=== PATIENT | female | born 1945 | race Caucasian/White ===

== ENCOUNTER 2019-07-19 07:23 | Day surgery (SDC) | payer OTHER ==
[2019-07-18 15:41] VITALS: BMI 31.5
[2019-07-19] MEDS ORDERED: PROPOFOL 20 ML ONE (09:26)
[2019-07-19] MEDS ORDERED: LIDOCAINE HCL/PF 2% SDV 5ML VIAL ONE (09:26)
[2019-07-19] MEDS ORDERED: MIDAZOLAM HCL 2 MG/2 ML SINGLE DOSE VIAL ONE (09:26)
[2019-07-19] MEDS ORDERED: ceFAZolin SODIUM 1 GM VIAL ONE (09:31)
[2019-07-19] MEDS ORDERED: ceFAZolin SODIUM 1 GM VIAL IVPB ONE (09:33)
--- NOTE | 2019-07-19 10:52 | OP ---
Operative Note - Note: Operative Date: 07/19/19 Pre-Operative Diagnosis: Left Renal Calculus Operation: Left ESWL Findings: Lg renal stone Post-Operative Diagnosis: Same as Pre-op Surgeon: Ferdinand Ness MD. Anesthesia: General
[2019-07-19] MEDS ORDERED: ELECTROLYTE-148 SOLN 1,000 ML IV SCH (11:00)
--- NOTE | 2019-07-19 12:48 | OP ---
DATE OF OPERATION: 07/19/2019 PREOPERATIVE DIAGNOSIS: Left renal calculus. POSTOPERATIVE DIAGNOSIS: Left renal calculus. PROCEDURE: Left extracorporeal shock-wave lithotripsy. HISTORY: This is a pleasant 73-year-old female with a long history of renal calculi, who preoperatively was found to have a 2-cm stone in the left renal pelvis causing intermittent flank pain. After discussing treatment options, and recommending a ureteroscopy and laser lithotripsy and a possible "sandwich procedure," the patient preferred to undergo an ESWL first. Risk of retaining ureteral fragments was discussed clearly with the patient. Risks and benefits of treatment and alternative treatments discussed in detail. All questions were answered. BRIEF OPERATIVE NOTE: The patient was brought to the operative room, placed in supine position. Once the stone was localized using 3D fluoroscopy, intravenous sedation and antibiotics were given. At this time, approximately 2500 shocks were delivered in electromagnetic fashion. The patient tolerated procedure well and was sent to recovery room in stable and satisfactory condition. The stone appeared to fragment radiographically in the lower portion of the stone. Ramila [id number]
[2019-07-19 14:05] VITALS: BP 152/72; PULSE 90; TEMP 97.6
== END 2019-07-19 12:45 | disposition home or self-care (01) ==
LOC: JASU-SURG 07:23 → EDSEX 07:23 → JASU-SURG 12:45
PROVIDERS: ATTEND Urology
PROC: 0TF4XZZ Fragmentation in Left Kidney Pelvis, External Approach (ICD-10-PCS; principal; 2019-07-19 08:45)
DX: N20.0 Calculus of kidney (principal)

== ENCOUNTER 2019-09-20 09:00 | Day surgery (SDC) | payer OTHER ==
[2019-09-20] MEDS ORDERED: ONDANSETRON 4 MG/2 ML VIAL IVPUSH PRN (11:06)
[2019-09-20] MEDS ORDERED: LACTATED RINGERS SOLUTION 1,000 ML IV SCH (11:15)
[2019-09-20] MEDS ORDERED: DEXAMETHASONE SOD PHOSPHATE 4 MG/1 ML VIAL ONE (11:38)
[2019-09-20] MEDS ORDERED: PROPOFOL 20 ML ONE (11:39)
[2019-09-20] MEDS ORDERED: MIDAZOLAM HCL 2 MG/2 ML SINGLE DOSE VIAL ONE (11:39)
--- NOTE | 2019-09-20 12:40 | OP ---
Operative Note - Note: Operative Date: 09/20/19 Pre-Operative Diagnosis: left Ureteral stone Operation: Left Ureteroscopy laser lithotrispy stent placement Surgeon: Ferdinand Ness MD. Anesthesiologist/CASKET INSPECTOR: Anayeli Rouse Anesthesia: General Drains & Tubes with Location: 22 cm 6 fr DJ stent Operative Report Dictated: Yes
[2019-09-20] MEDS ORDERED: ELECTROLYTE-148 SOLN 1,000 ML IV SCH (12:45)
[2019-09-20] MEDS ORDERED: ceFAZolin SODIUM 1 GM VIAL IVPB ONE (12:55)
[2019-09-20 13:59] VITALS: TEMP 97.9
[2019-09-20 17:07] VITALS: BP 144/77; PULSE 106
--- NOTE | 2019-09-21 22:31 | OP ---
DATE OF OPERATION: 09/20/2019 PREOPERATIVE DIAGNOSIS: Left ureteral calculus. POSTOPERATIVE DIAGNOSIS: Left ureteral calculus. PROCEDURE: Left ureteroscopy, laser lithotripsy, stent placement. HISTORY: This is very pleasant, 73-year-old female with a history of left flank pain, 08/02. Preoperative imaging revealed a left proximal ureteral stone approximately 1.7 cm in diameter. She also had resulting hydronephrosis with some perinephric stranding. After discussing treatment options, the patient elected to undergo the above-stated procedure. Risks and benefits of treatment alternatives were discussed in detail. All questions were answered. BRIEF OPERATIVE NOTE: Patient was brought into the operating room, placed in supine position. Once general anesthesia was administered, the patient was transferred to the dorsal lithotomy position, prepped and draped in standard sterile fashion. Intravenous antibiotics were given. A timeout was performed. At this time, a 23-[place] cystoscope sheath was placed into the bladder under direct vision. The bladder was unremarkable. The left ureteral orifice was identified. A 0.038 Glidewire was passed up into the left renal pelvis. This was confirmed fluoroscopically. A retrograde ureteral pyelogram was performed. The stone appeared to be in the proximal ureter and into the renal pelvis as well. There was a moderate amount of hydronephrosis. At this time, a 7.5-[place] flexible Storz ureteroscope was passed over the guidewire. The entire collecting system was inspected. The stone was identified and fragmented into multiple small fragments using a 365-micron fiber with the holmium laser settings at 10 Hz and 1 joule. At this time, there were no visible fragments greater than 2-3 mm. The wire was then replaced. The scope was removed. A 6-[place] 22-cm double-J stent was passed over the guidewire and fluoroscopically confirmed to be in normal position. The bladder was drained. Patient was brought to recovery room in stable and satisfactory condition. Ramila [id number]
== END 2019-09-20 17:05 | disposition home or self-care (01) ==
LOC: JASU-SURG 09:00
PROVIDERS: ATTEND Urology
PROC: 0TF78ZZ Fragmentation in Left Ureter, Via Natural or Artificial Opening Endoscopic (ICD-10-PCS; principal; 2019-09-20 11:30)
PROC: 0T778DZ Dilation of Left Ureter with Intraluminal Device, Via Natural or Artificial Opening Endoscopic (ICD-10-PCS; 2019-09-20 11:30)
DX: N20.1 Calculus of ureter (principal)
CPT/HCPCS: 76000-TC-FY; 94760

== ENCOUNTER 2019-10-19 11:09 | Day surgery (SDC) | payer OTHER ==
[2019-10-19 11:37] VITALS: BMI 27.0
[2019-10-19] MEDS ORDERED: PROPOFOL 20 ML ONE (13:06)
[2019-10-19] MEDS ORDERED: LIDOCAINE HCL/PF 2% SDV 5ML VIAL ONE (13:06)
[2019-10-19] MEDS ORDERED: ceFAZolin SODIUM 1 GM VIAL IVPB ONE (13:25)
[2019-10-19] MEDS ORDERED: ceFAZolin SODIUM 1 GM VIAL ONE (13:27)
--- NOTE | 2019-10-19 13:57 | OP ---
Operative Note - Note: Operative Date: 10/19/19 Pre-Operative Diagnosis: migrated stent Operation: Ureteroscopy stent removal Findings: Migrated stent Post-Operative Diagnosis: Same as Pre-op Surgeon: Ferdinand Ness MD. Anesthesia: General Specimens Removed: Stent Estimated Blood Loss (mls): 0
[2019-10-19] MEDS ORDERED: ELECTROLYTE-148 SOLN 1,000 ML IV SCH ×2 (14:00)
[2019-10-19] MEDS ORDERED: ACETAMINOPHEN 325 MG TABLET (FP) PO PRN (14:12)
[2019-10-19] MEDS ORDERED: ONDANSETRON 4 MG/2 ML VIAL IVPUSH PRN (14:12)
[2019-10-19] MEDS ORDERED: LACTATED RINGERS SOLUTION 1,000 ML IV SCH (14:15)
--- NOTE | 2019-10-19 14:34 | OP ---
DATE OF OPERATION: 10/19/2019 PREOPERATIVE DIAGNOSIS: Migrated stent. POSTOPERATIVE DIAGNOSIS: Migrated stent. PROCEDURE: Ureteroscopy, removal of stent. HISTORY: This is a 74-year-old female with prior history of obstructing urinary calculi with hydronephrosis and sepsis who is status post prior ureteroscopy, previous stent placement. Since the prior stent placement, the patient's stent had migrated up into the distal ureter. I discussed the treatment options. Patient elected to undergo the above-stated procedure. Risks and benefits of treatment, alternative treatment discussed in detail. All questions were answered. DESCRIPTION OF PROCEDURE: Patient was brought to the operating room, placed in supine position. General anesthesia was administered. Patient was transferred to dorsal lithotomy position, prepped and draped in standard sterile fashion. Intravenous antibiotics were given. At this time, a 22-[place] Storz sheath was placed under direct vision. There were some small stone fragments within the urinary bladder. The bladder was, otherwise, unremarkable. At this time, a 0.03 guidewire was passed into the left orifice and into the renal pelvis. The semi rigid ureteroscope was then passed into the distal ureter. Using a grasping forceps, the stent was able to be manipulated out of the distal ureter and in the bladder and removed. Other wire was then removed. The patient was brought to recovery room in stable and satisfactory condition. Ramila [id number]
[2019-10-19 17:44] VITALS: TEMP 97.8
[2019-10-19 17:48] VITALS: BP 132/70; PULSE 78
--- NOTE | 2019-10-24 17:08 | PATH ---
Surgical Pathology Report Patient Name: DEB ELIZALDE [facility]. Rec. #: [id number] /Age/Gender: 1945 (Age: 74) / F Account: [id number] Location: [facility] SURGICAL Taken: 10/19/2019 Received: 10/21/2019 Reported: 10/24/2019 Physicians: Ferdinand Ness M.D. Specimen(s) Received LEFT URETERAL STENT Clinical History Left kidney stone Final Diagnosis URETERAL STENT, LEFT, REMOVAL: URETERAL STENT. MACROSCOPIC DIAGNOSIS. Electronically Signed Daysi Rodriguez M.D. Gross Description Received fresh labeled "left ureteral stent," is a 34 cm in length blue-green, coiled portion of tubing, consistent with a ureteral stent. No soft tissue is present. No sections are submitted, gross only. 10/21/2019 [facility]10/21/2019
== END 2019-10-19 17:30 | disposition home or self-care (01) ==
LOC: JASU-SURG 11:09
PROVIDERS: ATTEND Urology
PROC: 0TP98DZ Removal of Intraluminal Device from Ureter, Via Natural or Artificial Opening Endoscopic (ICD-10-PCS; principal; 2019-10-19 13:00)
DX: T83.122A Displacement of indwelling ureteral stent, initial encounter (principal); N13.39 Other hydronephrosis; N21.0 Calculus in bladder
CPT/HCPCS: 76000-TC-FY; 88300-TC; 94760